=== PATIENT | female | born 1995 | race Caucasian/White ===

== ENCOUNTER 2017-11-19 12:11 | Emergency (ER) | payer MEDICAID ==
[~2017-11-19] VITALS: Ht 165.1 cm; Wt 52.0 kg
[2017-11-19 13:24] LABS: BASOPHILS % 0.9 % (0.0-2.0); EOSINOPHILS % 2.1 % (0.0-5.0); HEMATOCRIT. 36.1 % (36.0-48.0); HEMOGLOBIN. 12.2 g/dL (12.0-16.0); LYMPHOCYTES % 23.1 % (20.0-50.0); MEAN CORPUSCULAR HEMOGLOBIN 30.2 pg (28.0-32.0); MEAN CORPUSCULAR VOLUME 89.4 fL (81.0-99.0); MONOCYTES % 8.9 % (2.0-8.0); PLATELET 282 x1000/uL (130-400); RED BLOOD CELL COUNT 4.04 mill/uL (4.2-5.4); RED CELL DISTRIBUTION WIDTH 14.6 % (11.6-14.6)
[2017-11-19 13:26] LABS: CHLORIDE 106 mEq/L (98-107)
[2017-11-19 13:45] LABS: HCG SCREEN NEGATIVE
[2017-11-19 14:00] LABS: CARBAMAZEPINE < 0.5 ug/mL (4-12); PHENOBARBITAL < 2.1 ug/mL (15.0-40.0); VALPROIC ACID < 3.0 ug/mL (50-100)
[2017-11-19 19:00] VITALS: BP 107/64
== END 2017-11-19 19:30 | disposition home or self-care (01) ==
LOC: ER 12:11
DX: R56.9 Unspecified convulsions (principal); Z88.0 Allergy status to penicillin
CPT/HCPCS: 36415; 70450; 80053; 80156; 80165; 80184; 80185; 84703; 85025; 99285